=== PATIENT | male | born 1955 | race African-American/Black ===

== ENCOUNTER 2022-05-06 20:19 | Emergency (ER) | payer MEDICAID ==
[~2022-05-06] VITALS: Ht 177.8 cm; Wt 70.0 kg
[2022-05-06] MEDS ORDERED: ACETAMINOPHEN 325MG TABLET PO ONE (22:15)
[2022-05-07] MEDS ORDERED: IBUPROFEN 400MG TABLET PO ONE
[2022-05-07 00:26] LABS: BASOPHILS % 0.5 % (0.0-2.0); EOSINOPHILS % 0.6 % (0.0-5.0); HEMATOCRIT. 32.2 % (42.0-52.0); HEMOGLOBIN. 10.9 g/dL (14.0-18.0); LYMPHOCYTES % 13.3 % (20.0-50.0); MEAN CORPUSCULAR HEMOGLOBIN 27.2 pg (28.0-32.0); MEAN PLATELET VOLUME 6.7 fl (7.4-10.4); MONOCYTES % 13.5 % (2.0-8.0); NEUTROPHILS % 72.1 % (40.0-76.0); PLATELET 286 x1000/uL (130-400); RED BLOOD CELL COUNT 4.03 mill/uL (4.7-6.1); RED CELL DISTRIBUTION WIDTH 16.3 % (11.6-14.6)
[2022-05-07 00:59] LABS: CHLORIDE 106 mEq/L (98-107)
[2022-05-07 01:08] LABS: ETHANOL BLOOD < 10 mg/dL
[2022-05-07] MEDS ORDERED: TOPUD PO (01:14)
[2022-05-07 03:00] VITALS: BP 128/74
== END 2022-05-07 04:16 | disposition home or self-care (01) ==
LOC: ER 20:29
DX: S05.11XA Contusion of eyeball and orbital tissues, right eye, initial encounter (principal); S80.211A Abrasion, right knee, initial encounter; F99 Mental disorder, not otherwise specified; Z59.00 Homelessness unspecified; V78.4XXA Person boarding or alighting from bus injured in noncollision transport accident, initial encounter; Y93.89 Activity, other specified; Y92.488 Other paved roadways as the place of occurrence of the external cause
CPT/HCPCS: 36415; 70486; 71045; 72170; 73562; 80053; 80320; 85025; 99285; G0480